=== PATIENT | female | born 2000 | race Caucasian/White ===

== ENCOUNTER 2021-03-29 11:24 | Emergency (ER) | payer OTHER ==
[~2021-03-29] VITALS: Ht 152.4 cm; Wt 45.5 kg
[2021-03-29] MEDS ORDERED: KETOROLAC TROMETHAMINE 30 MG/ML VIAL IVP ONE (12:15)
[2021-03-29] MEDS ORDERED: SODIUM CHLORIDE 0.9% 1,000 ML IV ONE (12:15)
[2021-03-29] MEDS ORDERED: ONDANSETRON HCL 4 MG/2 ML VIAL IVP ONE (12:15)
[2021-03-29 13:00] LABS: BASOPHILS % (AUTO) 0.2 % (0.0-2.0); EOSINOPHILS % (AUTO) 0.1 % (1.0-6.0); HEMATOCRIT 42.3 % (36-46); HEMOGLOBIN 14.8 g/dL (12.0-16.0); LYMPHOCYTES % (AUTO) 12.8 % (22.0-44.0); MEAN CORPUSCULAR HEMOGLOBIN 29.9 pg (26.0-34.0); MEAN CORPUSCULAR VOLUME 85 fL (80-100); MONOCYTES # (AUTO) 0.6 K/uL (0.1-1.0); MONOCYTES % (AUTO) 7.6 % (2.0-9.0); NEUTROPHILS % (AUTO) 79.3 % (40.0-70.0); PLATELET COUNT (AUTO) 196 K/uL (150-450); RED BLOOD CELL COUNT(AUTO) 4.96 MIL/uL (4.00-5.20); RED CELL DISTRIBUTION WIDTH 13.2 % (11.5-14.5)
[2021-03-29 13:13] LABS: ANION GAP 10 mmol/L (8-16); CALCIUM, TOTAL 8.7 mg/dL (8.8-10.5); CARBON DIOXIDE 26 mmol/L (22-29); CHLORIDE 100 mmol/L (98-107); CREATININE 0.73 mg/dL (0.60-1.30); GLOMERULAR FILTR. RATE CALC > 60 mL/min (>60); GLUCOSE,RANDOM 83 mg/dL (70-110); POTASSIUM 3.5 mmol/L (3.5-5.1); SODIUM SERUM 136 mmol/L (136-145); UREA NITROGEN, BLOOD 9 mg/dL (7-18)
[2021-03-29 13:26] LABS: ALANINE AMINOTRANSFERASE 17 U/L (12-78); ALBUMIN 4.1 g/dL (3.4-5.0); ALKALINE PHOSPHATASE 78 U/L (46-116); ASPARTATE AMINOTRANSFERASE 14 U/L (15-37); BILIRUBIN,TOTAL 0.7 mg/dL (0.1-1.0); HCG,QUANTITATIVE < 1 mIU/mL (0-6); LIPASE 84 U/L (73-393); TOTAL PROTEIN, SERUM 8.2 g/dL (6.4-8.2)
[2021-03-29 13:48] LABS: BILIRUBIN,URINE NEGATIVE (NEGATIVE); GLUCOSE, URINE (UA) NEGATIVE (NEGATIVE); KETONES,URINE 15 mg/dL (NEGATIVE); LEUKOCYTE ESTERASE ,URINE NEGATIVE (NEGATIVE); NITRATE,URINE NEGATIVE (NEGATIVE); OCCULT BLOOD,URINE NEGATIVE (NEGATIVE); PH,URINE 5.5 (5.0-8.0); PROTEIN,URINE NEGATIVE (NEGATIVE); UROBILINOGEN,URINE 0.2 mg/dL (<=1.0)
[2021-03-29 13:51] LABS: APPEARANCE,URINE HAZY (CLEAR)
[2021-03-29 15:24] VITALS: BP 128/77
== END 2021-03-29 15:31 | disposition home or self-care (01) ==
LOC: EMS 11:24
DX: R10.31 Right lower quadrant pain (principal)
CPT/HCPCS: 36415; 74176; 80053; 81003; 83690; 84702; 85025; 96361; 96374; 96375; 99285; J1885; J2405; J7030